=== PATIENT | female | born 1980 | race Two or more races ===

== ENCOUNTER → 2016-10-04 | Day surgery (SDC) | payer BC ==
[~2016-10-04] VITALS: Ht 182.9 cm; Wt 93.0 kg
[~2016-10-04] MED LIST: BUPIVACAINE/EPIN 0.25% 30 ML VIAL As Ordered ONE; BUPIVACAINE/EPIN 0.25% 30 ML VIAL XX ONE; DESFLURANE 240 ML INHALANT As Ordered ONE; EFFE75CA75 PO; IRON65TA PO; LR 1,000 ML IV SCH; MIDAZOLAM INJ 2 MG/2 ML VIAL (J2250) As Ordered ONE; MULT1TAB15 PO; PERC5TAB6 PO; PROPOFOL 200 MG/20 ML VIAL As Ordered ONE; TYLENOL/COD PO; VITA100037 PO; VITA100072 PO; ceFAZolin SOD 1 GM in D5W MINI-BAG PLUS 50 ML IV ONE; fentaNYL 100 MCG/2 ML INJECTION (J3010) As Ordered ONE
[2016-10-04 10:19] LABS: CONTROL LINE UCG INT CTR LINE PRESENT
--- NOTE | 2016-10-04 13:15 | RO ---
DATE OF PROCEDURE: 10/04/2016 PREOPERATIVE DIAGNOSIS: Chest wall lipoma 8 x 6 cm. POSTOPERATIVE DIAGNOSIS: Chest wall lipoma 8 x 6 cm. PROCEDURE: Excision of chest wall subcutaneous mass/lipoma. SURGEON: Dg Menjivar Jr., MD ANESTHESIA: Intravenous (IV) sedation plus local. ESTIMATED BLOOD LOSS (EBL): Minimal. FLUIDS: Crystalloid. DESCRIPTION OF PROCEDURE: Brief procedure summary: The patient was brought to the operating room and was given IV sedation, was prepped and draped in usual sterile fashion. Local lidocaine mixed with Marcaine was infiltrated into the skin and subcutaneous tissue over the lipoma/subcutaneous mass on the chest wall. This was just inferior to the breast on the right-hand side, still above the costochondral junction. A small transverse incision was made with skin knife. Electrocautery was used to cut through dermis, underlying subcutaneous tissue, down to the lipoma. The capsule on the lipoma was entered, and then this was able to be opened and mobilized bluntly; and this, after it was mobilized bluntly, was delivered out of the wound. Some loose areolar attachments were taken down with electrocautery; and then, the area was examined for hemostasis, was clean and dry. Subcutaneous tissue was brought together with 3-0 Vicryl. 3-0 Vicryl was used to approximate the dermis. 4-0 Vicryl subcuticular was used to approximate the skin. Steri-Strips and a dry sterile dressing was applied. The patient was awakened from anesthesia, brought to the recovery area awake, alert, hemodynamically stable. Sponge and needle counts correct times two.
[2016-10-04 13:20] VITALS: BP 142/84
== END | disposition home or self-care (01) ==
LOC: M SDC 09:02
PROVIDERS: ATTEND Surgery
DX: D17.1 Benign lipomatous neoplasm of skin and subcutaneous tissue of trunk (principal); F41.9 Anxiety disorder, unspecified; D68.59 Other primary thrombophilia; G89.29 Other chronic pain; M54.9 Dorsalgia, unspecified; M12.9 Arthropathy, unspecified; Z88.0 Allergy status to penicillin; Z88.6 Allergy status to analgesic agent; Z79.899 Other long term (current) drug therapy; Z91.011 Allergy to milk products; Z72.0 Tobacco use; Z98.84 Bariatric surgery status
CPT/HCPCS: 21552; 84703; 88304; J2250; J3010